=== PATIENT | male | born 1960 | race Two or more races ===

== ENCOUNTER 2019-12-27 12:33 | Emergency (ER) | payer MEDICAID ==
[~2019-12-27] VITALS: Ht 177.8 cm; Wt 87.1 kg
--- NOTE | 2019-12-27 12:46 | NUR ---
BIB [facility],C/O PAIN IN RIGHT INFRA-GLUTEAL AREA, SLIPPED AT A PARKING LOT DENIES ANY FALL. REPORTS THAT HE "HEARD A POP". ABLE TO BEAR WEIGHT BUT AFRAID TO WALK. REPORTS PAIN LEVEL 7/10 AND ACHY. AOX4, VSS, RR EVEN AND UNLABORED. NO ACUTE DISTRESS NOTED. PENDING MD SUMMERS.
[2019-12-27] MEDS ORDERED: KETOROLAC TROMETHAMINE 15 MG/ML VIAL ONE (13:09)
[2019-12-27] MEDS ORDERED: CYCLOBENZAPRINE 10 MG TABLET ONE (13:10)
[2019-12-27] MEDS ORDERED: KETOROLAC TROMETHAMINE INJ 30 MG/ML VIAL IM ONE (13:30)
[2019-12-27] MEDS ORDERED: CYCLOBENZAPRINE 10 MG TABLET PO ONE (13:30)
--- NOTE | 2019-12-27 13:35 | NUR ---
Patient discharged to home in stable condition. Written and verbal after care instructions given. Patient verbalizes understanding of instruction.
[2019-12-27 13:36] VITALS: BP 138/70
== END 2019-12-27 13:36 | disposition home or self-care (01) ==
LOC: ER 12:40
DX: S76.811A Strain of other specified muscles, fascia and tendons at thigh level, right thigh, initial encounter (principal); R25.2 Cramp and spasm; Z60.2 Problems related to living alone; W01.0XXA Fall on same level from slipping, tripping and stumbling without subsequent striking against object, initial encounter; Y93.01 Activity, walking, marching and hiking; Y92.481 Parking lot as the place of occurrence of the external cause; Y99.8 Other external cause status
CPT/HCPCS: 96372; 99283; J1885